=== PATIENT | male | born 1965 | race Caucasian/White ===

== ENCOUNTER 2017-11-14 01:21 | Emergency (ER) | payer OTHER ==
[2017-11-14] MEDS ORDERED: TETRACAINE 0.5% STERI-UNIT SOL OP ONE (01:42)
[2017-11-14] MEDS ORDERED: Eye-Stream Solution ONE (01:43)
[2017-11-14] MEDS ORDERED: Fluor-I-Strip/Ful-Flo OP ONE ×2 (01:43→02:13)
[2017-11-14 01:54] VITALS: O2SAT 96
[2017-11-14] MEDS ORDERED: Eye-Stream Solution OP ONE (02:13)
[2017-11-14] MEDS ORDERED: Adacel Vial IM ONE ×2 (02:28→02:39)
[2017-11-14] MEDS ORDERED: Erythromycin 3.5 GM OPHTH. OP ONE (02:28)
[2017-11-14] MEDS ORDERED: Erythromycin 1 GM ONE (02:36)
--- NOTE | 2017-11-14 02:38 | ERPHSYRPT ---
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 Triage Nursing Assessment: pt alert and oriented, asnwers questions approp. pt ambulatory with steady gait noted, respirations nonlabored with lungs cta. tearing noted from lt eye. redness and swelling of eyelid. 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 DENIES BLURRED VISION OR HEADACHE. Timing/Duration: today Location: left eye Severity: mild Apparent Injury: possibly Associated Symptoms: pain, sensitivity to light, foreign body sensation Visual Assistive Devices: Glasses Chemical Exposure: No Trauma: No Welding Arc/Tanning Bed Exposure: No Allergies/Adverse Reactions: No Known Drug Allergies Allergy (Verified 11/14/17 02:00) Hx Tetanus, Diphtheria Vaccination/Date Given: No (unknown) Hx Influenza Vaccination/Date Given: Yes Hx Pneumococcal Vaccination/Date Given: No Immunizations Up to Date: No - Review of Systems Constitutional: No Fever, No Chills Eyes: Photophobia, Tearing, Foreign Body Sensation Ears, Nose, & Throat: No Symptoms Respiratory: No Cough, No Dyspnea Cardiac: No Chest Pain, No Edema, No Syncope Genitourinary Symptoms: No Dysuria Endocrine: No Symptoms - Past Medical History Pertinent Past Medical History: No - Past Surgical History Past Surgical History: Yes Other Surgical History: rt eye surgery - Social History Smoking Status: Never smoker Exposure to second hand smoke: Yes Drug Use: none Patient Lives Alone: No - Nursing Vital Signs Nursing Vital Signs: Initial Vital Signs Temperature 97.8 F 11/14/17 01:44 Pulse Rate 59 L 11/14/17 01:44 Respiratory Rate 18 11/14/17 01:44 Blood Pressure 146/74 11/14/17 01:44 O2 Sat by Pulse Oximetry 96 11/14/17 01:44 Pain Scale Pain Intensity 3 - Physical Exam Vision Acuity Degree Evaluation Phase: Uncorrected Vision Acuity Right Eye: 20/20 Vision Acuity Left Eye: 20/30 Eye Exam: left eye: exudate (OVER LEFT PUPIL), bilateral eye: normal inspection , PERRL Ears, Nose, Throat Exam: normal ENT inspection Respiratory Exam: normal breath sounds Cardiovascular Exam: regular rate/rhythm, normal heart sounds SpO2: 96 Oxygen Delivery: Room Air Ordered Tests: Medication Summary Discontinued Medications Generic Name Dose Route Start Last Admin Trade Name Lila PRN Reason Stop Dose Admin Hydrocodone Bitart/Acetaminophen 2 tab 11/14/17 02:49 [place] 10/325 Mg Tablet PO 11/14/17 02:50 SENT HOME W/ PATIENT ONE Diphtheria/Tetanus/Acell Pertussis 0.5 ml 11/14/17 02:28 11/14/17 02:40 Adacel Vial IM 11/14/17 02:29 0.5 ml .ONCE ONE Administration Diphtheria/Tetanus/Acell Pertussis Confirm 11/14/17 02:39 Adacel Vial Administered 11/14/17 02:40 Dose 0.5 ml IM .STK-MED ONE Erythromycin 3.5 gm 11/14/17 02:28 11/14/17 02:48 Erythromycin 3.5 Gm Ophth. OP 11/14/17 02:29 3.5 gm STAT ONE Administration Erythromycin Confirm 11/14/17 02:36 Erythromycin 1 Gm Administered 11/14/17 02:37 Dose 1 gm .ROUTE .STK-MED ONE Eye Irrigation Solution Confirm 11/14/17 01:43 Eye-Stream Solution Administered 11/14/17 01:44 Dose 30 ml .ROUTE .STK-MED ONE Eye Irrigation Solution 15 ml 11/14/17 02:13 11/14/17 02:41 Eye-Stream Solution OP 11/14/17 02:14 15 ml STAT ONE Administration Fluorescein Sodium Confirm 11/14/17 01:43 Ojiac-X-Fbloz/Ful-Riley Administered 11/14/17 01:44 Dose 1 mg OP .STK-MED ONE Fluorescein Sodium 1 mg 11/14/17 02:13 11/14/17 02:41 Fdxkg-G-Gbosr/Ful-Riley OP 11/14/17 02:14 1 mg STAT ONE Administration Tetracaine HCl Confirm 11/14/17 01:42 Tetracaine 0.5% Steri-Unit Blake Administered 11/14/17 01:43 Dose 4 ml OP .STK-MED ONE Tetracaine HCl 4 ml 11/14/17 02:39 11/14/17 02:48 Tetracaine 0.5% Steri-Unit Blake OP 11/14/17 02:40 4 ml STAT STA Administration - Progress Progress: pain not gone completely Progress Note: 11/14/17 02:40 TETRACAINE OPHTH BLAKE 2GTTS OU, EVERSION UPPER EYE LID NO EVIDENCE OF FOREIGN BODY, THERE IS A FOREIGN BODY OVER RIGHT PUPIL, REMOVAL OF PARTIAL FOREIGN BODY WITH COTTON SWAB., EYE IRRIGATION AND APPLICATION ERYTHROMYCIN OPHTH OINMENT Counseled pt/family regarding: diagnosis, need for follow-up - Departure Time of Disposition: 03:00 Departure Disposition: Home Clinical Impression: REMOVAL PARTIAL FOREIGN BODY LEFT EYE Condition: Stable Critical Care Time: No Referrals: MOHINI BOND MD [Primary Care Provider] - Additional Instructions: FOLLOWUP WITH [facility] DR LEACH FOR EVALUATION AND TREATMENT OF LEFT EYE RESIDUAL FOREIGN. CALL DR LEACH OFFICE TOMORROW TO SCHEDULE APPOINTMENT. NORCO 10/325 EVERY 4-6 HOURS NEEDED FOR PAIN. APPLY ERYTHROMYCIN OPHTHALMIC OINTMENT 1/4 INCH RIBBON INTO LEFT LOWER INNER EYE LID EVERY 6 HOURS FOR 7 DAYS. Prescriptions: Hydrocodone/APAP 10/325 mg [[place] 10/325 MG Tablet] 1 tab PO Q4H PRN PRN # 10 tablet MDD 4 PRN Reason: Pain Erythromycin Base 3.5 gm [Erythromycin 3.5 GM OPHTH.] 3.5 gm OP QID #1 tube
[2017-11-14] MEDS ORDERED: TETRACAINE 0.5% STERI-UNIT SOL OP STA (02:39)
[2017-11-14] MEDS ORDERED: Norco 10/325 MG Tablet PO ONE (02:49)
[2017-11-14] MEDS ORDERED: Norco 10/325 MG Tablet ONE (02:55)
[2017-11-14 03:10] VITALS: BP 140/60; PULSE 74
== END 2017-11-14 03:10 | disposition home or self-care (01) ==
LOC: ED 01:21
DX: T15.82XA Foreign body in other and multiple parts of external eye, left eye, initial encounter (principal); W29.8XXA Contact with other powered hand tools and household machinery, initial encounter; Y93.89 Activity, other specified; Y99.0 Civilian activity done for income or pay
CPT/HCPCS: 90471; 90715; 96372; 99283; 99284; A9270-GY

== ENCOUNTER 2021-03-08 08:20 | Emergency (ER) | payer OTHER ==
[2021-03-08] MEDS ORDERED: Sodium Chloride 0.9% 1000 ML 1,000 ML IV STA (08:47)
--- NOTE | 2021-03-08 08:50 | ERPHSYRPT ---
- History of Present Illness Time Seen by Provider: 03/08/21 08:40 Source: patient Exam Limitations: no limitations Patient Subjective Stated Complaint: weakness, dizziness Triage Nursing Assessment: pt to ED c/o weakness and dizziness while at work this morning. pt states he was taking out trash cans and "about passed out." pt did not lose consciouness or fall. denies pain at this time. pt states he feels better now. pt has been jaundice for 2 weeks, Dr Bull aware and treating. Physician History: Patient is a 56-year-old male presents to our ED for evaluation of a transient bout of dizziness and weakness. Patient was at work. Patient was taking out the trash when he developed his symptoms. Patient is currently asymptomatic. There was no syncope. No collapse. No associated chest pain or shortness of breath. No nausea vomiting or diaphoresis. However patient states he has been experiencing diarrhea for 5 weeks. Patient is currently being worked up by his family physician for jaundice. Patient had a ultrasound performed yesterday of his liver which showed distended gallbladder. Patient is jaundiced. He otherwise feels well. Symptoms were transient. Symptoms are mild in intensity. No specific worsening or improving factors. Patient voices no other complaints concerns at this time. Allergies/Adverse Reactions: Penicillins Allergy (Verified 03/08/21 08:38) Swelling Home Medications: Rutin/Hesp/Bioflav/C/[id number] [Bioflex Tablet] 1 each PO DAILY 03/08/21 [History] lisinopriL [Lisinopril] 10 mg PO DAILY 03/08/21 [History] Hx Tetanus, Diphtheria Vaccination/Date Given: No (unknown) Hx Influenza Vaccination/Date Given: Yes Hx Pneumococcal Vaccination/Date Given: No Immunizations Up to Date: No Travel Risk - International Travel Have you traveled outside of the country in past 3 weeks: No - Coronavirus Screening Are you exhibiting any of the following symptoms?: No Close contact with a COVID-19 positive Pt in past 14-21 Days: Yes - Vaccine Status Have you recieved a Covid-19 vaccination: Yes Gem Setter: Moderna - Vaccination Dates Date of 2cond Vaccination (if applicable): November - Review of Systems Constitutional: No Symptoms, No Fever, No Chills Eyes: No Symptoms Ears, Nose, & Throat: No Symptoms Respiratory: No Symptoms, No Cough, No Dyspnea Cardiac: No Symptoms, No Chest Pain, No Edema, No Syncope Abdominal/Gastrointestinal: No Symptoms, No Abdominal Pain, No Nausea, No Vomiting, No Diarrhea Genitourinary Symptoms: No Symptoms, No Dysuria Musculoskeletal: No Symptoms, No Back Pain, No Neck Pain Skin: No Symptoms, No Rash Neurological: No Symptoms, No Dizziness, No Focal Weakness, No Sensory Changes Psychological: No Symptoms Endocrine: No Symptoms Hematologic/Lymphatic: No Symptoms Immunological/Allergic: No Symptoms All Other Systems: Reviewed and Negative - Past Medical History Pertinent Past Medical History: Yes Cardiac History: Hypertension Endocrine Medical History: Diabetes Type II Other Medical History: joint pain - Past Surgical History Past Surgical History: Yes Musculoskeletal: Amputation Other Surgical History: rt eye surgery, L first finger amputation - Social History Smoking Status: Never smoker Exposure to second hand smoke: Yes Drug Use: none Patient Lives Alone: No - Nursing Vital Signs Nursing Vital Signs: Initial Vital Signs Temperature 97.6 F 03/08/21 08:26 Pulse Rate 56 L 03/08/21 08:26 Respiratory Rate 18 03/08/21 08:26 Blood Pressure 108/64 03/08/21 08:26 O2 Sat by Pulse Oximetry 98 03/08/21 08:26 Pain Scale Pain Intensity 0 - Physical Exam General Appearance: no apparent distress, alert, other (Jaundice skin) Eye Exam: PERRL/EOMI, eyes nml inspection, other (Scleral icterus) Ears, Nose, Throat Exam: normal ENT inspection, TMs normal, pharynx normal, moist mucous membranes Neck Exam: normal inspection, non-tender, supple, full range of motion Respiratory Exam: normal breath sounds, lungs clear, No respiratory distress Cardiovascular Exam: regular rate/rhythm, normal heart sounds, normal peripheral pulses Gastrointestinal/Abdomen Exam: soft, normal bowel sounds, No tenderness, No mass Back Exam: normal inspection, normal range of motion, No CVA tenderness, No rashid tebral tenderness Extremity Exam: normal inspection, normal range of motion, pelvis stable Neurologic Exam: alert, oriented x 3, cooperative, normal mood/affect, nml cerebellar function, nml station & gait, sensation nml, No motor deficits Skin Exam: normal color, warm, dry, No rash Lymphatic Exam: No adenopathy SpO2 Interpretation: normal SpO2: 98 O2 Delivery: Room Air - Course Nursing assessment & vital signs reviewed: Yes EKG Interpreted by Me: RATE (54), Sinus Rhythm, NORMAL AXIS Ordered Tests: Active Orders 24 hr Category Date Time Status Floriculturist STAT Care 03/08/21 08:47 Active EKG-ER Only STAT Care 03/08/21 08:47 Active IV Insertion STAT Care 03/08/21 08:47 Active Pulse Oximetry (ED) STAT Care 03/08/21 08:47 Active CBC W DIFF Stat Lab 03/08/21 09:35 Completed CMP Stat Lab 03/08/21 09:35 Completed LIPASE Stat Lab 03/08/21 12:19 Completed Manual Differential NC Stat Lab 03/08/21 09:35 Completed POCT GLUCOSE Stat Lab 03/08/21 08:50 Completed PROTIME WITH INR Stat Lab 03/08/21 08:50 Completed PTT Stat Lab 03/08/21 08:50 Completed TROPONIN Q3H Lab 03/08/21 09:35 Completed TROPONIN Q3H Lab 03/08/21 13:02 Completed TROPONIN Q3H Lab 03/08/21 15:00 Ordered TROPONIN Q3H Lab 03/08/21 18:00 Ordered TROPONIN Q3H Lab 03/08/21 21:00 Ordered Medication Summary Generic Name Dose Route Start Last Admin Trade Name Freq PRN Reason Stop Dose Admin Potassium Chloride 20 meq in 100 mls @ 50 mls/hr 03/08/21 10:15 03/08/21 12:18 Potassium Chloride 20 Meq In Water 100ml IV 03/08/21 14:14 50 mls/hr Q2H MARIE Administration Discontinued Medications Generic Name Dose Route Start Last Admin Trade Name Freq PRN Reason Stop Dose Admin Sodium Chloride 1,000 mls @ 999 mls/hr 03/08/21 08:47 03/08/21 10:10 Sodium Chloride 0.9% 1000 Ml IV 03/08/21 09:47 Infused .Q1H1M STA Infusion Sodium Chloride Confirm 03/08/21 08:52 Sodium Chloride 0.9% 1000 Ml Administered 03/08/21 08:53 Dose 1,000 mls @ ud .ROUTE .STK-MED ONE Sodium Chloride Confirm 03/08/21 10:18 Sodium Chloride 0.9% 1000 Ml Administered 03/08/21 10:19 Dose 1,000 mls @ ud .ROUTE .STK-MED ONE Lab/Rad Data: Laboratory Result Diagrams 03/08/21 09:35 03/08/21 09:35 Laboratory Results 03/08/21 03/08/21 03/08/21 Range/Units 13:02 12:19 09:35 WBC (4.0-10.5) K/mm3 RBC (4.1-5.6) M/mm3 Hgb (12.5-18.0) gm/dl Hct (42-50) % MCV (78-100) fl MCH (26-32) pg MCHC (32-36) g/dl RDW (11.5-14.0) % Plt Count (150-450) K/mm3 MPV (7.5-11.0) fl PT (9.4-12.5) SECONDS INR (0.8-3.0) APTT (25.1-36.5) SECONDS Sodium (137-145) mmol/L Potassium (3.5-5.1) mmol/L Chloride (98-107) mmol/L Carbon Dioxide (22-30) mmol/L Anion Gap (5-15) MEQ/L BUN (9-20) mg/dL Creatinine (0.66-1.25) mg/dL Estimated GFR ML/MIN Glucose (74-106) mg/dL POC Glucometer (74 to 106) mg/dL Calcium (8.4-10.2) mg/dL Total Bilirubin (0.2-1.3) mg/dL AST (17-59) U/L ALT (0-50) U/L Alkaline Phosphatase (38-126) U/L Ammonia < 9 L (9-30) umol/L Troponin I < 0.012 (0.000-0.034) ng/mL Serum Total Protein (6.3-8.2) g/dL Albumin (3.5-5.0) g/dL Lipase 323 H (23-300) U/L 03/08/21 03/08/21 03/08/21 Range/Units 09:35 09:35 09:35 WBC 6.2 (4.0-10.5) K/mm3 RBC 4.74 (4.1-5.6) M/mm3 Hgb 13.5 (12.5-18.0) gm/dl Hct 39.4 L (42-50) % MCV 83.1 (78-100) fl MCH 28.5 (26-32) pg MCHC 34.3 (32-36) g/dl RDW 19.3 H (11.5-14.0) % Plt Count 212 (150-450) K/mm3 MPV 11.4 H (7.5-11.0) fl PT (9.4-12.5) SECONDS INR (0.8-3.0) APTT (25.1-36.5) SECONDS Sodium 134 L (137-145) mmol/L Potassium 3.3 L (3.5-5.1) mmol/L Chloride 99 (98-107) mmol/L Carbon Dioxide 22 (22-30) mmol/L Anion Gap 15.6 H (5-15) MEQ/L BUN 8 L (9-20) mg/dL Creatinine 0.61 L (0.66-1.25) mg/dL Estimated GFR > 60.0 ML/MIN Glucose 159 H (74-106) mg/dL POC Glucometer (74 to 106) mg/dL Calcium 9.2 (8.4-10.2) mg/dL Total Bilirubin 24.30 H (0.2-1.3) mg/dL AST 94 H (17-59) U/L ALT 83 H (0-50) U/L Alkaline Phosphatase 263 H (38-126) U/L Ammonia (9-30) umol/L Troponin I < 0.012 (0.000-0.034) ng/mL Serum Total Protein 8.1 (6.3-8.2) g/dL Albumin 3.9 (3.5-5.0) g/dL Lipase (23-300) U/L 03/08/21 03/08/21 Range/Units 08:50 08:50 WBC (4.0-10.5) K/mm3 RBC (4.1-5.6) M/mm3 Hgb (12.5-18.0) gm/dl Hct (42-50) % MCV (78-100) fl MCH (26-32) pg MCHC (32-36) g/dl RDW (11.5-14.0) % Plt Count (150-450) K/mm3 MPV (7.5-11.0) fl PT 21.7 H (9.4-12.5) SECONDS INR 1.84 (0.8-3.0) APTT 30.9 (25.1-36.5) SECONDS Sodium (137-145) mmol/L Potassium (3.5-5.1) mmol/L Chloride (98-107) mmol/L Carbon Dioxide (22-30) mmol/L Anion Gap (5-15) MEQ/L BUN (9-20) mg/dL Creatinine (0.66-1.25) mg/dL Estimated GFR ML/MIN Glucose (74-106) mg/dL POC Glucometer 132 H (74 to 106) mg/dL Calcium (8.4-10.2) mg/dL Total Bilirubin (0.2-1.3) mg/dL AST (17-59) U/L ALT (0-50) U/L Alkaline Phosphatase (38-126) U/L Ammonia (9-30) umol/L Troponin I (0.000-0.034) ng/mL Serum Total Protein (6.3-8.2) g/dL Albumin (3.5-5.0) g/dL Lipase (23-300) U/L - Progress Progress: improved Progress Note: Case discussed with ANA Dillard from . He feels patient is more appropriate for hematology. We are awaiting return call from hepatology. 03/08/21 10:[address] Eleanor ghosh who will make arrangements to see patient either Saturday or Saturday. We reviewed all of the patient's labs. She does not feel a transfer is necessary at this time. She states it will be safe to see patient either Saturday or Saturday. This was discussed with patient. Patient is in agreement. We will obtain a second troponin if negative patient will be discharged home. 03/08/21 12:33 03/08/21 14:22 Troponin #2 -. Will discharge home. Patient will follow up with Dr. Jenelle ghosh as discussed previously. Patient voices no other complaints concerns at this time. Portions of this note were created with voice recognition technology. There may be grammatical, spelling, punctuation or sound alike errors Counseled pt/family regarding: diagnosis, need for follow-up, rad results - Departure Departure Disposition: Observation Clinical Impression: Jaundice, Diarrhea, Hyperbilirubinemia, Hypokalemia Condition: Stable Critical Care Time: No Referrals: MOHINI BULL MD [Primary Care Provider] - Additional Instructions: Discharge/Care Plan ANABELL KOLB was seen on 03/08/21 in the Emergency Room. The patient was counseled regarding Diagnosis,Lab results, Imaging studies, need for follow up and when to return to the Emergency Room. Prescriptions given: Discharge Note I have spoken with the patient and/or caregivers. I have explained the patient's condition, diagnosis and treatment plan based on the information available to me at this time. I have answered the patient's and/or caregiver's questions and addressed any concerns. The patient and/or caregivers have as good understanding of the patient's diagnosis, condition and treatment plan as can be expected at this point. The vital signs have been stable. The patient's condition is stable and appropriate for discharge from the emergency department. The patient will pursue further outpatient evaluation with the primary care physician or other designated or consulting physician as outlined in the discharge instructions. The patient and/or caregivers are agreeable to this plan of care and follow-up instructions have been explained in detail. The patient and/or caregivers have received these instruction. The patient/and or caregivers are aware that any significant change in condition or worsening of symptoms should prompt an immediate return to this or the closest emergency department or call 911.
[2021-03-08] MEDS ORDERED: Sodium Chloride 0.9% 1000 ML 1,000 ML ONE ×2 (08:52→10:18)
[2021-03-08 09:40] LABS: Hematocrit 39.4 % (42-50); Hemoglobin 13.5 gm/dl (12.5-18.0); Mean Cell Volume 83.1 fl (78-100); Mean Corpuscular Hemoglobin 28.5 pg (26-32); Mean Corpuscular Hgb Concent. 34.3 g/dl (32-36); Mean Platelet Volume 11.4 fl (7.5-11.0); Platelet Count 212 K/mm3 (150-450); Red Blood Count 4.74 M/mm3 (4.1-5.6); Red Cell Distribution Width 19.3 % (11.5-14.0); White Blood Count 6.2 K/mm3 (4.0-10.5)
[2021-03-08 09:48] LABS: ALBUMIN 3.9 g/dL (3.5-5.0); ALKALINE PHOSPHATASE 263 U/L (38-126); ANION GAP 15.6 MEQ/L (5-15); BLOOD UREA NITROGEN 8 mg/dL (9-20); CHLORIDE 99 mmol/L (98-107); Calcium 9.2 mg/dL (8.4-10.2); Carbon Dioxide 22 mmol/L (22-30); Creatinine 1 0.61 mg/dL (0.66-1.25); EST GLOMERULAR FILTRATION RATE > 60.0 ML/MIN; Glucose 159 mg/dL (74-106); Potassium 3.3 mmol/L (3.5-5.1); SGOT/AST 94 U/L (17-59); SGPT/ALT 83 U/L (0-50); SODIUM 134 mmol/L (137-145); Total Protein 8.1 g/dL (6.3-8.2)
[2021-03-08] MEDS ORDERED: POTASSIUM CHLORIDE 20 mEq IN WATER 100ML 100 ML IV ONE ×2 (10:17→12:17)
[2021-03-08] MEDS: POTASSIUM CHLORIDE 20 mEq IN WATER 100ML 20 MEQ/100 ML BAG IV SCH ×2 (10:21→12:18)
[2021-03-08 10:49] LABS: INR 1.84 (0.8-3.0); PROTIME 21.7 SECONDS (9.4-12.5)
[2021-03-08 10:52] LABS: PTT 30.9 SECONDS (25.1-36.5)
[2021-03-08 14:19] VITALS: BP 117/73; PULSE 56
[2021-03-08 14:24] VITALS: O2SAT 98
[2021-03-08 15:01] LABS: Lymphocytes 18 % (24-44); Monocyte 3 % (0.0-12.0); Neutrophils 79 % (36.-66.); Total Cells Counted 100
[2021-03-08 15:02] LABS: ANISOCYTOSIS 1+; Platelet Estimate NORMAL (NORMAL); Toxic Granulation 2+
== END 2021-03-08 14:39 | disposition home or self-care (01) ==
LOC: ED 08:20
DX: R17 Unspecified jaundice (principal); E87.6 Hypokalemia
CPT/HCPCS: 36000; 36415; 80053; 82140; 82947; 83690; 84484; 85025; 85610; 85730; 93005; 93041; 94760; 96360; 99284; J3480

== ENCOUNTER 2021-03-28 08:22 | Emergency (ER) | payer OTHER ==
--- NOTE | 2021-03-28 08:58 | ERPHSYRPT ---
- History of Present Illness Time Seen by Provider: 03/28/21 08:35 Historian: patient Exam Limitations: no limitations Patient Subjective Stated Complaint: PT states "I have pancreatic cancer and I passed a small amount of dark blood yesterday and I am supposed to pass one stent that was put in and when I went to the bathroom this morning it felt like something is stuck and it hurts really bad." Triage Nursing Assessment: Pt presented alert and oriented X 3, skin pwd pt ambulates with an upright steady slow gait, able to speak in clear full s entences pt in o apprent respiratory distress. Physician History: This is a 56-year-old white male patient who has a history of pancreatic cancer and presents to the emergency department with some rectal bleeding and rectal pain. Approximately 2 weeks ago he had pancreatic stents placed and he was told there was expectation that one of the stents would pass rectally. Yesterday he noticed some pain in his rectum when he was attempting to have a bowel movement. Today, he underwent a scheduled KUB of his abdomen. It showed a significant amount of stool in his rectal vault. He also attempted to have a bowel movement today and not only was there more pain but there was passage of some blood. Patient has no abdominal pain. He has no chest pain. He is not short of breath. Patient presents to the emergency department with systolic blood pressure of 117 with a heart rate in the 60s. His room air oxygenation levels are 99%. Activities at Onset: none Quality: sharpness (Perianal/rectum with attempted bowel movement) Abdominal Pain Onset Location: other (No abdominal pain) Severity of Pain-Max: mild Severity of Pain-Current: mild (To moderate. The moderate pain is present with a bowel movement) Modifying Factors: Improves With: defecating (Increases pain and passage of some blood) Associated Symptoms: other (Rectal pain/perianal pain), No chest pain, No shortness of breath, No vomiting Previous symptoms: no prior history Allergies/Adverse Reactions: Penicillins Allergy (Verified 03/08/21 08:38) Swelling Home Medications: Rutin/Hesp/Bioflav/C/[id number] [Bioflex Tablet] 1 each PO DAILY 03/08/21 [History] lisinopriL [Lisinopril] 10 mg PO DAILY 03/08/21 [History] Cholestyramine/Aspartame [Prevalite Packet] 4 gm PO DAILY 03/28/21 [History] Doxepin HCl 10 mg PO DAILY 03/28/21 [History] Hydroxyzine HCl 10 mg PO DAILY 03/28/21 [History] ursodioL [Ursodiol] 500 mg PO DAILY 03/28/21 [History] Hx Tetanus, Diphtheria Vaccination/Date Given: No (unknown) Hx Influenza Vaccination/Date Given: Yes Hx Pneumococcal Vaccination/Date Given: No Immunizations Up to Date: Yes Travel Risk - International Travel Have you traveled outside of the country in past 3 weeks: No - Coronavirus Screening Are you exhibiting any of the following symptoms?: No Close contact with a COVID-19 positive Pt in past 14-21 Days: No - Vaccine Status Have you recieved a Covid-19 vaccination: Yes 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 - Vaccination Dates Date of 2cond Vaccination (if applicable): 11/2020 - Review of Systems Constitutional: No Symptoms Eyes: No Symptoms Ears, Nose, & Throat: No Symptoms Respiratory: No Symptoms Cardiac: No Symptoms Abdominal/Gastrointestinal: Other (Rectal and perianal pain) Genitourinary Symptoms: No Symptoms Musculoskeletal: No Symptoms Skin: No Symptoms Neurological: No Symptoms Psychological: No Symptoms Endocrine: No Symptoms Hematologic/Lymphatic: No Symptoms Immunological/Allergic: No Symptoms All Other Systems: Reviewed and Negative - Past Medical History Pertinent Past Medical History: Yes Cardiac History: Hypertension Endocrine Medical History: Diabetes Type II Other Medical History: joint pain - Past Surgical History Past Surgical History: Yes Musculoskeletal: Amputation Other Surgical History: rt eye surgery, L first finger amputation - Social History Smoking Status: Never smoker Exposure to second hand smoke: Yes Drug Use: none Patient Lives Alone: No - Nursing Vital Signs Nursing Vital Signs: Initial Vital Signs Temperature 97.5 F 03/28/21 08:30 Pulse Rate 63 03/28/21 08:30 Respiratory Rate 20 03/28/21 08:30 Blood Pressure 117/66 03/28/21 08:30 O2 Sat by Pulse Oximetry 99 03/28/21 08:30 Pain Scale Pain Intensity 5 - Physical Exam General Appearance: mild distress, alert, anxiety, obese Eye Exam: PERRL/EOMI, eyes nml inspection Ears, Nose, Throat Exam: normal ENT inspection, moist mucous membranes Neck Exam: normal inspection, non-tender, supple, full range of motion Respiratory Exam: normal breath sounds, lungs clear, airway intact, No chest tenderness, No respiratory distress Cardiovascular Exam: regular rate/rhythm, normal heart sounds, normal peripheral pulses Gastrointestinal/Abdomen Exam: soft, normal bowel sounds, No tenderness Male Genitalia Exam: other, No testicular tenderness, No testicular mass Rectal Exam: hemorrhoids (Noninflamed external hemorrhoids. There is evidence of bleeding internal hemorrhoids. 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 II-XII nml as tested, normal mood/affect, nml cerebellar function, nml station & gait, sensation nml Skin Exam: normal color, warm, dry SpO2: 99 - Course Nursing assessment & vital signs reviewed: Yes Ordered Tests: Active Orders 24 hr Category Date Time Status Enema STAT Care 03/28/21 09:02 Active BMP Stat Lab 03/28/21 09:15 Completed CBC W DIFF Stat Lab 03/28/21 09:15 Completed Manual Differential NC Stat Lab 03/28/21 09:15 Completed PROTIME WITH INR Stat Lab 03/28/21 09:15 Completed Lab/Rad Data: Laboratory Result Diagrams 03/28/21 09:15 03/28/21 09:15 Laboratory Results 03/28/21 03/28/21 03/28/21 Range/Units 09:15 09:15 09:15 WBC 7.4 (4.0-10.5) K/mm3 RBC 4.23 (4.1-5.6) M/mm3 Hgb 12.2 L (12.5-18.0) gm/dl Hct 36.8 L (42-50) % MCV 87.0 (78-100) fl MCH 28.8 (26-32) pg MCHC 33.2 (32-36) g/dl RDW 21.8 H (11.5-14.0) % Plt Count 186 (150-450) K/mm3 MPV 10.5 (7.5-11.0) fl PT 13.8 H (9.4-12.5) SECONDS INR 1.17 (0.8-3.0) Sodium 133 L (137-145) mmol/L Potassium 4.7 (3.5-5.1) mmol/L Chloride 98 (98-107) mmol/L Carbon Dioxide 29 (22-30) mmol/L Anion Gap 10.2 (5-15) MEQ/L BUN 10 (9-20) mg/dL Creatinine 0.58 L (0.66-1.25) mg/dL Estimated GFR > 60.0 ML/MIN Glucose 129 H (74-106) mg/dL Calcium 9.0 (8.4-10.2) mg/dL - Progress Progress: improved, pain not gone completely, re-examined Progress Note: 03/28/21 10:09 Medical decision making: This patient is refusing a soapsuds enema. He asked to use the restroom and had a large bowel movement with minimal pain. It appears the patient has internal hemorrhoid that was bleeding. The KUB report read by the radiologist shows the pancreatic and biliary stent still in place. There has yet to be passage of the stent. Patient is hemodynamically stable. His hemoglobin is 12.2. Patient states that he has Preparation H which she will use at home. It is also recommended to him that he uses warm sitz bath with soap or Epsom salts twice a day. 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 Counseled pt/family regarding: lab results, diagnosis, need for follow-up, rad results - Departure Departure Disposition: Home Clinical Impression: Rectal bleeding, Internal hemorrhoid, External hemorrhoids Condition: Stable Critical Care Time: No Referrals: MOHINI BOND MD [Primary Care Provider] - Additional Instructions: Sitz bath with warm soapy water or Epson salts twice a day. Use your Preparation H suppositories/product as prescribed. Call your primer waterproofing machine operator today for further instructions. Return to the emergency department if rectal bleeding increases.
[2021-03-28 09:39] LABS: Hematocrit 36.8 % (42-50); Hemoglobin 12.2 gm/dl (12.5-18.0); Mean Corpuscular Hemoglobin 28.8 pg (26-32); Mean Corpuscular Hgb Concent. 33.2 g/dl (32-36); Mean Platelet Volume 10.5 fl (7.5-11.0); Platelet Count 186 K/mm3 (150-450); Red Blood Count 4.23 M/mm3 (4.1-5.6); Red Cell Distribution Width 21.8 % (11.5-14.0); White Blood Count 7.4 K/mm3 (4.0-10.5)
[2021-03-28 09:40] LABS: INR 1.17 (0.8-3.0); PROTIME 13.8 SECONDS (9.4-12.5)
[2021-03-28 09:48] LABS: ANION GAP 10.2 MEQ/L (5-15); BLOOD UREA NITROGEN 10 mg/dL (9-20); CHLORIDE 98 mmol/L (98-107); Carbon Dioxide 29 mmol/L (22-30); Creatinine 1 0.58 mg/dL (0.66-1.25); EST GLOMERULAR FILTRATION RATE > 60.0 ML/MIN; Glucose 129 mg/dL (74-106); Potassium 4.7 mmol/L (3.5-5.1); SODIUM 133 mmol/L (137-145)
[2021-03-28 10:08] LABS: BAND 4 % (0.0-2.0); Basophil 1 % (0.0-1.0); Eosinophil 2 % (0.00-3.0); Lymphocytes 11 % (24-44); Metamyelocyte 3 %; Monocyte 10 % (0.0-12.0); Neutrophils 69 % (36.-66.); Platelet Estimate NORMAL (NORMAL); Total Cells Counted 100
[2021-03-28 10:09] VITALS: BP 118/67; PULSE 70
[2021-03-28 10:12] VITALS: O2SAT 99
== END 2021-03-28 10:17 | disposition home or self-care (01) ==
LOC: ED 08:22
DX: K62.5 Hemorrhage of anus and rectum (principal); K64.8 Other hemorrhoids; K64.4 Residual hemorrhoidal skin tags; D49.0 Neoplasm of unspecified behavior of digestive system; I10 Essential (primary) hypertension; E11.9 Type 2 diabetes mellitus without complications; Z79.899 Other long term (current) drug therapy
CPT/HCPCS: 36415; 80048; 85025; 85610; 99283

== ENCOUNTER 2021-07-20 16:29 | Emergency (ER) | payer OTHER, SELFPAY ==
--- NOTE | 2021-07-20 16:34 | ERPHSYRPT ---
- History of Present Illness Time Seen by Provider: 07/20/21 16:34 Source: patient Exam Limitations: no limitations Physician History: This is a 56-year-old white male patient of Dr. Bond who presents with weakness. Patient has a history of pancreatic cancer and is on chemotherapy. He has not been eating or drinking well. He has a history of hypertension, type 2 diabetes and arthritis. Patient has no chest pain. He denies shortness of breath. He has no abdominal pain. He has no nausea vomiting or diarrhea. Patient contacted to the office of Dr. Bond and they referred him to the emergency department for intravenous fluid therapy. Timing/Duration: other (Chronic, intermittent) Severity: moderate Modifying Factors: Improves With: nothing Associated Symptoms: loss of appetite, weakness, No nausea, No vomiting, No abdominal pain, No shortness of breath, No chest pain Allergies/Adverse Reactions: Penicillins Allergy (Verified 07/20/21 16:46) Swelling Home Medications: Rutin/Hesp/Bioflav/C/[id number] [Bioflex Tablet] 1 each PO DAILY 03/08/21 [History] lisinopriL [Lisinopril] 10 mg PO DAILY 03/08/21 [History] Cholestyramine/Aspartame [Prevalite Packet] 4 gm PO DAILY 03/28/21 [History] Doxepin HCl 10 mg PO DAILY 03/28/21 [History] hydrOXYzine HCL [Hydroxyzine HCl] 10 mg PO DAILY 03/28/21 [History] ursodioL [Ursodiol] 500 mg PO DAILY 03/28/21 [History] Hx Tetanus, Diphtheria Vaccination/Date Given: No (unknown) Hx Influenza Vaccination/Date Given: Yes Hx Pneumococcal Vaccination/Date Given: No Travel Risk - International Travel Have you traveled outside of the country in past 3 weeks: No - Coronavirus Screening Are you exhibiting any of the following symptoms?: No Close contact with a COVID-19 positive Pt in past 14-21 Days: No - Vaccine Status Have you recieved a Covid-19 vaccination: Yes 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 - Vaccination Dates Date of 2cond Vaccination (if applicable): 11/2020 - Review of Systems Constitutional: Weakness Eyes: No Symptoms Ears, Nose, & Throat: No Symptoms Respiratory: No Symptoms Cardiac: No Symptoms Abdominal/Gastrointestinal: No Symptoms Genitourinary Symptoms: No Symptoms Musculoskeletal: No Symptoms Skin: No Symptoms Neurological: No Symptoms Psychological: No Symptoms Endocrine: No Symptoms Hematologic/Lymphatic: No Symptoms Immunological/Allergic: No Symptoms All Other Systems: Reviewed and Negative - Past Medical History Pertinent Past Medical History: Yes Cardiac History: Hypertension Endocrine Medical History: Diabetes Type II Other Medical History: joint pain - Past Surgical History Past Surgical History: Yes Musculoskeletal: Amputation Other Surgical History: rt eye surgery, L first finger amputation - Social History Smoking Status: Never smoker Exposure to second hand smoke: Yes Drug Use: none Patient Lives Alone: No - Nursing Vital Signs Nursing Vital Signs: Initial Vital Signs Temperature 97.8 F 07/20/21 16:38 Pulse Rate 92 H 07/20/21 16:38 Respiratory Rate 12 07/20/21 16:38 Blood Pressure 116/79 07/20/21 16:38 O2 Sat by Pulse Oximetry 97 07/20/21 16:38 Pain Scale Pain Intensity 0 - Physical Exam General Appearance: mild distress, alert Eye Exam: scleral icterus Ears, Nose, Throat Exam: dry mucous membranes Neck Exam: normal inspection, non-tender, supple, full range of motion Respiratory Exam: normal breath sounds, lungs clear, airway intact, No chest tenderness, No respiratory distress Cardiovascular Exam: regular rate/rhythm, normal heart sounds, normal peripheral pulses Gastrointestinal/Abdomen Exam: soft, normal bowel sounds, No tenderness Rectal Exam: not done Back Exam: normal inspection, normal range of motion, No CVA tenderness, No vertebral tenderness Extremity Exam: normal inspection, normal range of motion, pelvis stable Neurologic Exam: alert, oriented x 3, cooperative, 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 investigator II-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 tested, normal mood/affect, nml cerebellar function, nml station & gait, sensation nml Skin Exam: jaundice Lymphatic Exam: No adenopathy SpO2 Interpretation: normal O2 Delivery: Room Air - Course Nursing assessment & vital signs reviewed: Yes Ordered Tests: Active Orders 24 hr Category Date Time Status IV Insertion STAT Care 07/20/21 16:57 Active CBC W DIFF Stat Lab 07/20/21 16:57 Completed CMP Stat Lab 07/20/21 18:05 Completed Lactic Acid Stat Lab 07/20/21 16:57 Completed MAG [MAGNESIUM] Stat Lab 07/20/21 18:05 Received UA W/RFX UR CULTURE Stat Lab 07/20/21 16:57 Ordered Medication Summary Generic Name Dose Route Start Last Admin Trade Name Freq PRN Reason Stop Dose Admin Sodium Chloride 1,000 mls @ 999 mls/hr 07/20/21 18:49 07/20/21 18:52 Sodium Chloride 0.9% 1000 Ml IV 07/20/21 19:49 999 mls/hr .Q1H1M STA Administration Discontinued Medications Generic Name Dose Route Start Last Admin Trade Name Lila TINEON Reason Stop Dose Admin Sodium Chloride 1,000 mls @ 999 mls/hr 07/20/21 16:57 07/20/21 18:35 Sodium Chloride 0.9% 1000 Ml IV 07/20/21 17:57 Infused .Q1H1M STA Infusion Sodium Chloride Confirm 07/20/21 17:19 Sodium Chloride 0.9% 1000 Ml Administered 07/20/21 17:20 Dose 1,000 mls @ ud .ROUTE .STK-MED ONE Sodium Chloride Confirm 07/20/21 18:51 Sodium Chloride 0.9% 1000 Ml Administered 07/20/21 18:52 Dose 1,000 mls @ ud .ROUTE .STK-MED ONE Ondansetron HCl 4 mg 07/20/21 16:57 07/20/21 17:30 Ondansetron Hcl 4 Mg/2 Ml Vial IV 07/20/21 16:58 4 mg STAT ONE Administration Ondansetron HCl Confirm 07/20/21 17:19 Ondansetron Hcl 4 Mg/2 Ml Vial Administered 07/20/21 17:20 Dose 4 mg .ROUTE .STK-MED ONE Lab/Rad Data: Laboratory Result Diagrams 07/20/21 16:57 07/20/21 18:05 Laboratory Results 07/20/21 07/20/21 07/20/21 Range/Units 18:05 16:57 16:57 WBC 5.6 (4.0-10.5) K/mm3 RBC 4.39 (4.1-5.6) M/mm3 Hgb 12.9 (12.5-18.0) gm/dl Hct 36.7 L (42-50) % MCV 83.6 (78-100) fl MCH 29.4 (26-32) pg MCHC 35.1 (32-36) g/dl RDW 14.1 H (11.5-14.0) % Plt Count 184 (150-450) K/mm3 MPV 9.8 (7.5-11.0) fl Gran % 52.9 (36.0-66.0) % Eos # (Auto) 0.03 (0-0.5) Absolute Lymphs (auto) 1.93 (1.0-4.6) Absolute Monos (auto) 0.63 (0.0-1.3) Lymphocytes % 34.8 (24.0-44.0) % Monocytes % 11.4 (0.0-12.0) % Eosinophils % 0.5 (0.00-5.0) % Basophils % 0.4 (0.0-0.4) % Absolute Granulocytes 2.94 (1.4-6.9) Basophils # 0.02 (0-0.4) Sodium 130 L (137-145) mmol/L Potassium 3.8 (3.5-5.1) mmol/L Chloride 96 L (98-107) mmol/L Carbon Dioxide 24 (22-30) mmol/L Anion Gap 13.6 (5-15) MEQ/L BUN 16 (9-20) mg/dL Creatinine 0.62 L (0.66-1.25) mg/dL Estimated GFR > 60.0 ML/MIN Glucose 229 H (74-106) mg/dL Lactic Acid 1.7 (0.4-2.0) Calcium 9.4 (8.4-10.2) mg/dL Total Bilirubin 0.80 (0.2-1.3) mg/dL AST 34 (17-59) U/L ALT 44 (0-50) U/L Alkaline Phosphatase 227 H (38-126) U/L Serum Total Protein 6.7 (6.3-8.2) g/dL Albumin 3.6 (3.5-5.0) g/dL - Progress Progress: improved, re-examined Progress Note: 07/20/21 18:56 Patient states that he feels much better after 1 L of fluid. I will give him a second liter of fluid and he will be discharged to home. Patient states that he wants to go home. Counseled pt/family regarding: lab results, diagnosis, need for follow-up - Departure Departure Disposition: Home Clinical Impression: Mild dehydration Condition: Stable Critical Care Time: No Referrals: MOHINI BOND MD [Primary Care Provider] - Follow up/PCP as directed Additional Instructions: Drink plenty of fluids. Take your medication as prescribed. Follow-up with Dr. Bond's office tomorrow morning for further management
[2021-07-20] MEDS ORDERED: Zofran 4 MG/2 ML VIAL IV ONE (16:57)
[2021-07-20] MEDS ORDERED: Sodium Chloride 0.9% 1000 ML 1,000 ML IV STA ×2 (16:57→18:49)
[2021-07-20] MEDS ORDERED: Sodium Chloride 0.9% 1000 ML 1,000 ML ONE ×2 (17:19→18:51)
[2021-07-20] MEDS ORDERED: Zofran 4 MG/2 ML VIAL ONE (17:19)
[2021-07-20 17:44] LABS: Absolute Neutrophil Ct (ANC) 2.94 (1.4-6.9); Basophil (Absolute #) 0.02 (0-0.4); Eosinophil % 0.5 % (0.00-5.0); Eosinophil (Absolute #) 0.03 (0-0.5); Hematocrit 36.7 % (42-50); Hemoglobin 12.9 gm/dl (12.5-18.0); Lymphocyte (Absolute #) 1.93 (1.0-4.6); Lymphocytes % 34.8 % (24.0-44.0); Mean Cell Volume 83.6 fl (78-100); Mean Corpuscular Hemoglobin 29.4 pg (26-32); Mean Corpuscular Hgb Concent. 35.1 g/dl (32-36); Mean Platelet Volume 9.8 fl (7.5-11.0); Monocyte (Absolute #) 0.63 (0.0-1.3); Monocytes % 11.4 % (0.0-12.0); Neutrophil % 52.9 % (36.0-66.0); Platelet Count 184 K/mm3 (150-450); Red Blood Count 4.39 M/mm3 (4.1-5.6); Red Cell Distribution Width 14.1 % (11.5-14.0); White Blood Count 5.6 K/mm3 (4.0-10.5)
[2021-07-20 18:18] LABS: ALBUMIN 3.6 g/dL (3.5-5.0); ALKALINE PHOSPHATASE 227 U/L (38-126); ANION GAP 13.6 MEQ/L (5-15); BLOOD UREA NITROGEN 16 mg/dL (9-20); CHLORIDE 96 mmol/L (98-107); Calcium 9.4 mg/dL (8.4-10.2); Carbon Dioxide 24 mmol/L (22-30); Creatinine 1 0.62 mg/dL (0.66-1.25); EST GLOMERULAR FILTRATION RATE > 60.0 ML/MIN; Glucose 229 mg/dL (74-106); Potassium 3.8 mmol/L (3.5-5.1); SGOT/AST 34 U/L (17-59); SGPT/ALT 44 U/L (0-50); SODIUM 130 mmol/L (137-145); Total Protein 6.7 g/dL (6.3-8.2)
[2021-07-20 19:28] VITALS: O2SAT 99
[2021-07-20 20:21] VITALS: BP 107/69; PULSE 64
== END 2021-07-20 20:02 | disposition home or self-care (01) ==
LOC: ED 16:29
DX: E86.0 Dehydration (principal); C25.9 Malignant neoplasm of pancreas, unspecified; I10 Essential (primary) hypertension; E11.9 Type 2 diabetes mellitus without complications
CPT/HCPCS: 36000; 36415; 80053; 83605; 83735; 85025; 96374; 99284; J1642; J2405